=== PATIENT | female | born 1970 | race Hispanic/Latino ===

== ENCOUNTER 2020-09-04 18:22 | Inpatient (IN) | payer SELFPAY ==
[2020-09-04] MEDS ORDERED: METHYLPREDNISOLONE 40 MG INJ ONE (19:12)
[2020-09-04] MEDS ORDERED: ALBUTEROL INHALER 60 PUFF/8 GM IH ONE (19:12)
--- NOTE | 2020-09-04 19:38 | RAD REPORT ---
EXAM DESCRIPTION: RAD - Chest Single View - 09/04/2020 7:07 pm CLINICAL HISTORY: SOB Chest pain. COMPARISON: No comparisons FINDINGS: Portable technique limits examination quality. Moderate peripherally oriented airspace opacities are present, greater on the right, likely represent ing COVID pneumonia. The heart is mildly prominent size. No displaced fractures.
--- NOTE | 2020-09-04 20:55 | ER ---
Nurse's Notes [facility] Name: Thais Contreras Age: 49 yrs Sex: Female : 1970 Arrival Date: 09/04/2020 Time: 18:24 Bed 26 Private MD: Diagnosis: Pneumonia due to other specified infectious organisms;Coronavirus infection, unspecified;Hypoxemia Presentation: 09/04 18:37 Chief complaint: Patient states: SOB with exertion and difficulty breathing for a ll1 couple days. Bad cough since 08/13. Had positive covid test 08/18. Coronavirus screen: Client denies travel out of the [place] in the last 14 days. congestion, cough unrelated to allergies, difficulty breathing, fatigue, shortness of breath, Client presents with at least one sign or symptom that may indicate coronavirus-19. Standard/surgical mask placed on the client. Client reports previous positive COVID test result. Date of collection: August 15, 2020. Ebola Screen: Patient denies travel to an Ebola-affected area in the 21 days before illness onset. Initial Sepsis Screen: Does the patient meet any 2 criteria? RR > 20 per min. HR > 90 bpm. Yes Does the patient have a suspected source of infection? Yes: Productive cough/pneumonia. Risk Assessment: Do you want to hurt yourself or someone else? Patient reports no desire to harm self or others. Onset of symptoms was August 13, 2020. 18:37 Method Of Arrival: Wheelchair ll1 18:37 Acuity: MELIDA 2 ll1 Triage Assessment: 19:00 Respiratory: the patient has moderate shortness of breath. vg1 Historical: - Allergies: 18:44 Peanut; ll1 - PMHx: 18:44 None; ll1 - PSHx: 18:44 foot sx; ll1 - Immunization history:: Flu vaccine is not up to date. - Social history:: Smoking status: Patient denies any tobacco usage or history of. Screenin:00 Abuse screen: Denies threats or abuse. Nutritional screening: No deficits noted. vg1 Tuberculosis screening: No symptoms or risk factors identified. Fall Risk None identified. Assessment: 19:00 General: Appears in no apparent distress. comfortable, Behavior is calm, cooperative. vg1 19:00 Pain: Denies pain. Neuro: Level of Consciousness is awake, alert, obeys commands, vg1 Oriented to person, place, time, situation. Cardiovascular: Capillary refill < 3 seconds in bilateral fingers. Respiratory: Reports cough that is productive, Airway is patent Respiratory effort is even, labored, Respiratory pattern is regular, symmetrical, Breath sounds with crackles bilaterally. GI: No signs and/or symptoms were reported involving the gastrointestinal system. : No signs and/or symptoms were reported regarding the genitourinary system. EENT: No signs and/or symptoms were reported regarding the EENT system. Derm: Skin is intact, is healthy with good turgor. Musculoskeletal: Circulation, motion, and sensation intact. 19:00 Cardiovascular: Rhythm is sinus tachycardia. vg1 20:00 Reassessment: Patient appears in no apparent distress at this time. No changes from vg1 previously documented assessment. Patient is alert, oriented x 3, equal unlabored respirations, skin warm/dry/pink. 21:15 Reassessment: Patient appears in no apparent distress at this time. Patient is alert, vg1 oriented x 3, equal unlabored respirations, skin warm/dry/pink. Patient denies pain at this time. 22:00 Reassessment: Patient appears in no apparent distress at this time. Patient is alert, vg1 oriented x 3, equal unlabored respirations, skin warm/dry/pink. Patient denies pain at this time. 23:02 Reassessment: Patient appears in no apparent distress at this time. No changes from vg1 previously documented assessment. Patient is alert, oriented x 3, equal unlabored respirations, skin warm/dry/pink. 09/05 00:00 Reassessment: Patient appears in no apparent distress at this time. No changes from vg1 previously documented assessment. Patient denies pain at this time. 19:25 Reassessment: report given to Felisa RN, pt transferred to hold area bed 26. ll2 Vital Signs: 09/04 18:37 Pulse 130; Resp 30; Pulse Ox 86% on R/A; Weight 72.57 kg; Height 5 ft. 2 in. (157.48 ll1 cm); Pain 8/10; 18:40 Resp 26; Pulse Ox 93% on 3 lpm NC; ll1 18:44 BP 122 / 90; Pulse 117; Resp 22; Pulse Ox 95% on 3 lpm NC; ll1 18:45 BP 128 / 93; Pulse 111; Resp 22; Pulse Ox 98% on 4 lpm NC; vg1 20:15 BP 108 / 53; Pulse 101; Resp 24; Pulse Ox 96% on 3 lpm NC; vg1 18:37 Body Mass Index 29.26 (72.57 kg, 157.48 cm) ll1 ED Course: 18:24 Patient arrived in ED. rg4 18:34 Ruiz Sandoval PA is PHCP. cp 18:34 Ruiz Russell MD is Attending Physician. cp 18:37 Arm band placed on Patient placed in an exam room, on a stretcher. ll1 18:39 Triage completed. ll1 18:49 Izabella Sorenson RN is Primary Nurse. vg1 19:00 Patient has correct armband on for positive identification. Bed in low position. Call vg1 light in reach. Adult w/ patient. 19:01 Xray at bedside. vg1 19:07 XRAY Chest (1 view) In Process Unspecified. EDMS 19:15 Inserted saline lock: 20 gauge in right antecubital area, using aseptic technique. vg1 Blood collected. 19:15 Initial lab(s) drawn, by al, sent to lab. vg1 20:53 Liam Jo MD is Hospitalizing Provider. cp 09/05 01:17 No provider procedures requiring assistance completed. vg1 04:26 Primary Nurse role handed off by Izabella Sorenson RN mw2 13:54 Maeve Kirkpatrick, EVELINE is Primary Nurse. zb 19:55 Patient admitted, IV remains in place. ll2 20:06 PHCP role handed off by Ruiz Sandoval PA sg 20:06 Primary Nurse role handed off by Maeve Kirkpatrick, EVELINE sg Administered Medications: 09/04 19:27 Drug: SOLU-Medrol 80 mg Route: IVP; Site: right antecubital; vg1 21:11 Follow up: Response: No adverse reaction vg1 19:28 Drug: Albuterol HFA Inhaler 2 puffs Route: Inhalation; vg1 21:11 Follow up: Response: No adverse reaction vg1 21:35 Drug: Rocephin 1 grams Route: IV; Rate: calculated rate; Site: right antecubital; vg1 23:40 Follow up: IV Status: Completed infusion vg1 21:35 Drug: Zithromax 500 mg Route: PO; vg1 23:40 Follow up: Response: No adverse reaction vg1 Outcome: 20:54 Decision to Hospitalize by Provider. cp 09/05 19:54 Admitted to ER Hold. Please see [facility] for further documentation. ll2 Condition: stable Instructed on the need for admit. 19:55 Patient left the ED. ll2 22:10 Patient left the ED. sg Signatures: Dispatcher [employer] EDMS Alban Dorado RN RN sg Ruiz Sandoval PA PA cp Garcia, Rubi rg4 Irene Martin 2 Kiersten Barkley RN RN ll2 Izabella Sorenson RN RN vg1 Hiwot Pepe RN RN ll1 Maeve Kirkpatrick RN RN zb Corrections: (The following items were deleted from the chart) 09/04 18:44 18:37 Allergies: No Known Allergies; ll1 ll1 18:44 18:37 PSHx: None; ll1 ll1
--- NOTE | 2020-09-04 20:55 | EDPHYS ---
Physician Documentation [facility] Name: Thais Contreras Age: 49 yrs Sex: Female : 1970 Arrival Date: 09/04/2020 Time: 18:24 Bed 26 Private MD: ED Physician Ruiz Russell HPI: 09/04 18:50 This 49 yrs old Female presents to ER via Wheelchair with complaints of cp Shortness Of Breath, Breathing Difficulty, Covid+. 18:50 The patient has shortness of breath at rest. Onset: The symptoms/episode began/occurred cp gradually, and became worse 2 day(s) ago. Duration: The symptoms are continuous, and are steadily getting worse. Associated signs and symptoms: Pertinent negatives: chest pain, diaphoresis, fever. Severity of symptoms: in the emergency department the symptoms are unchanged despite home interventions. 18:50 Patient reports she has had cough since 08-13-2020 and tested positive for COVID-19 on cp 08-18-2020. Has not been treated illness. Historical: - Allergies: 18:44 Peanut; ll1 - PMHx: 18:44 None; ll1 - PSHx: 18:44 foot sx; ll1 - Immunization history:: Flu vaccine is not up to date. - Social history:: Smoking status: Patient denies any tobacco usage or history of. ROS: 19:00 Constitutional: Negative for body aches, chills, fever, poor PO intake. cp 19:00 Eyes: Negative for injury, pain, redness, and discharge. cp 19:00 ENT: Negative for ear pain, sore throat, difficulty swallowing, difficulty handling secretions. 19:00 Cardiovascular: Negative for chest pain, edema, palpitations. 19:00 Respiratory: Positive for cough, "sounds productive", shortness of breath. 19:00 Abdomen/GI: Negative for abdominal pain, nausea, vomiting, and diarrhea. 19:00 Neuro: Negative for altered mental status, headache, weakness. 19:00 All other systems are negative. Exam: 19:05 Constitutional: The patient appears in no acute distress, alert, awake, cp non-diaphoretic, non-toxic, well developed, well nourished. 19:05 Head/Face: Normocephalic, atraumatic. cp 19:05 Eyes: Periorbital structures: appear normal, Conjunctiva: normal, no exudate, no injection, Sclera: no appreciated abnormality, Lids and lashes: appear normal, bilaterally. 19:05 ENT: External ear(s): are unremarkable, Nose: is normal, Mouth: Lips: moist, Oral mucosa: moist, Posterior pharynx: Airway: no evidence of obstruction, patent. 19:05 Neck: ROM/movement: is normal, is supple, without pain, no range of motions limitations. 19:05 Chest/axilla: Inspection: normal, Palpation: is normal, no crepitus, no tenderness. 19:05 Cardiovascular: Rate: tachycardic, Rhythm: regular, Edema: is not appreciated, JVD: is not appreciated. 19:05 Respiratory: the patient does not display signs of respiratory distress, Respirations: labored breathing, that is mild, shallow respirations, that is mild, tachypnea, that is mild, Breath sounds: bronchial sounds, that are mild, are heard diffusely, decreased breath sounds, that are moderate, throughout, wheezing: is not appreciated. 19:05 Abdomen/GI: Exam negative for discomfort, distension, guarding, Inspection: abdomen appears normal. 19:05 Neuro: Orientation: to person, place \\T\\ time. Mentation: is normal. 19:49 ECG was reviewed by the Attending Physician. Vital Signs: 18:37 Pulse 130; Resp 30; Pulse Ox 86% on R/A; Weight 72.57 kg; Height 5 ft. 2 in. (157.48 ll1 cm); Pain 8/10; 18:40 Resp 26; Pulse Ox 93% on 3 lpm NC; ll1 18:44 BP 122 / 90; Pulse 117; Resp 22; Pulse Ox 95% on 3 lpm NC; ll1 18:45 BP 128 / 93; Pulse 111; Resp 22; Pulse Ox 98% on 4 lpm NC; vg1 20:15 BP 108 / 53; Pulse 101; Resp 24; Pulse Ox 96% on 3 lpm NC; vg1 18:37 Body Mass Index 29.26 (72.57 kg, 157.48 cm) ll1 MDM: 18:35 Patient medically screened. lili 20:55 Physician consultation: Liam Jo MD was called at 20:50, was contacted at 20:50, regarding admission, to the medical/surgical unit. patient's condition. 21:00 Data reviewed: vital signs, nurses notes, lab test result(s), EKG, radiologic studies, cp plain films. 21:00 Antibiotic administration: Rocephin and Zithromax given. Test interpretation: by ED cp physician or midlevel provider: ECG. 09/04 18:44 Order name: Basic Metabolic Panel; Complete Time: 21:58 cp 09/04 21:58 Interpretation: Normal except: CL 108; BUN 3. cp 09/04 18:44 Order name: CBC with Diff cp 09/04 21:43 Interpretation: Normal except: MCV 77.1; MCH 25.2; PLT 462; RDW 27.0; BASO% 1.4. cp 09/04 18:44 Order name: LFT's; Complete Time: 21:58 cp 09/04 21:59 Interpretation: Normal except: ALB 2.6; GLOB 5.2; A/G 0.5. cp 09/04 18:44 Order name: Magnesium; Complete Time: 21:58 cp 09/04 18:44 Order name: NT PRO-BNP; Complete Time: 21:58 cp 09/04 21:58 Interpretation: Abnormal: NT PRO-BNP 2596. cp 09/04 18:44 Order name: PT-INR; Complete Time: 21:43 cp 09/04 18:44 Order name: Troponin (emerg Dept Use Only); Complete Time: 21:58 cp 09/04 21:59 Interpretation: Within normal limits: TROPED < 0.02. cp 09/04 18:44 Order name: CRP; Complete Time: 21:58 cp 09/04 21:59 Interpretation: Abnormal: C-REACTIVE PROT 21.50. cp 09/04 18:44 Order name: Ferritin; Complete Time: 21:58 cp 09/04 19:42 Order name: Urine Dipstick--Ancillary (enter results); Complete Time: 21:13 ds4 09/04 20:55 Order name: COVID-19 cp 09/04 21:26 Order name: C-Reactive Protein EDMS 09/04 21:26 Order name: C-Reactive Protein EDMS 09/04 21:26 Order name: C-Reactive Protein EDMS 09/04 18:44 Order name: XRAY Chest (1 view); Complete Time: 19:48 cp 09/04 19:48 Interpretation: Report review. cp 09/04 21:26 Order name: C-Reactive Protein EDMS 09/04 21:26 Order name: CBC with Automated Diff EDMS 09/04 21:26 Order name: CBC with Automated Diff EDMS 09/04 21:26 Order name: Comprehensive Metabolic Panel EDMS 09/04 21:26 Order name: Comprehensive Metabolic Panel EDMS 09/04 21:26 Order name: Ferritin EDMS 09/04 21:26 Order name: Ferritin EDMS 09/04 21:26 Order name: Ferritin EDMS 09/04 21:26 Order name: Ferritin EDMS 09/04 23:43 Order name: CBC Smear Scan EDMS 09/05 02:19 Order name: SARS-COV-2 RT PCR EDMS 09/05 04:43 Order name: Manual Differential EDMS 09/05 08:32 Order name: Glucose, Ancillary Testing EDMS 09/05 13:24 Order name: Glucose, Ancillary Testing EDMS 09/05 21:20 Order name: Glucose, Ancillary Testing EDMS 09/04 18:44 Order name: EKG; Complete Time: 18:45 cp 09/04 18:44 Order name: Cardiac monitoring; Complete Time: 19:47 cp 09/04 18:44 Order name: EKG - Nurse/Tech; Complete Time: 19:47 cp 09/04 18:44 Order name: IV Saline Lock; Complete Time: 19:29 cp 09/04 18:44 Order name: Labs collected and sent; Complete Time: 19:29 cp 09/04 18:44 Order name: O2 Per Protocol; Complete Time: 19:28 cp 09/04 18:44 Order name: O2 Sat Monitoring; Complete Time: 19:28 cp 09/04 18:44 Order name: Urine Dipstick-Ancillary (obtain specimen); Complete Time: 19:40 cp 09/04 18:44 Order name: Urine Test (obtain specimen); Complete Time: 19:40 cp 09/04 21:26 Order name: CONS Pharmacy Consult EDMS 09/04 21:26 Order name: Regular EDMS 09/04 21:26 Order name: Chest Single View EDMS 09/04 21:26 Order name: Chest Single View EDMS 09/04 21:27 Order name: Social Service Consult EDMS EC:49 Rate is 109 beats/min. Rhythm is regular. MO interval is normal. QRS interval is cp normal. QT interval is normal. T waves are Inverted in leads III, aVF, aVR. Interpreted by me. Reviewed by me. Administered Medications: 19:27 Drug: SOLU-Medrol 80 mg Route: IVP; Site: right antecubital; vg1 21:11 Follow up: Response: No adverse reaction vg1 19:28 Drug: Albuterol HFA Inhaler 2 puffs Route: Inhalation; vg1 21:11 Follow up: Response: No adverse reaction vg1 21:35 Drug: Rocephin 1 grams Route: IV; Rate: calculated rate; Site: right antecubital; vg1 23:40 Follow up: IV Status: Completed infusion vg1 21:35 Drug: Zithromax 500 mg Route: PO; vg1 23:40 Follow up: Response: No adverse reaction vg1 Disposition: 09/04/20 20:54 Hospitalization ordered by Liam Jo for Inpatient Admission. Preliminary diagnosis are Pneumonia due to other specified infectious organisms, Coronavirus infection, unspecified, Hypoxemia. - Bed requested for Telemetry/MedSurg (Inpatient). - Status is Inpatient Admission. sg - Condition is Fair. - Problem is new. - Symptoms have improved. Addendum: 09/07/2020 06:50 Co-signature as Attending Physician, Ruiz Russell MD I agree with the assessment and c cox plan of care. Signatures: Dispatcher [employer] EDVA Fariba Reaves RN RN mw Gay, Steven RN Ruiz Farnsworth MD MD cha Pena, Laura, RN RN lp1 Ruiz Sandoval PA PA cp Kiersten Barkley, RN RN ll2 Izabella Sorenson, RN RN vg1 Hiwot Pepe, EVELINE RN ll1 Corrections: (The following items were deleted from the chart) 09/04 18:44 18:37 Allergies: No Known Allergies; ll1 ll1 18:44 18:37 PSHx: None; ll1 ll1 20:55 20:54 Hospitalization Ordered by Liam Jo MD for Inpatient Admission. lp1 Preliminary diagnosis is Pneumonia due to other specified infectious organisms; Coronavirus infection, unspecified; Hypoxemia. Bed requested for Telemetry/MedSurg (Inpatient). Status is Inpatient Admission. Condition is Fair. Problem is new. Symptoms have improved. cp 01/04 19:55 09/04 20:55 09/04/2020 20:54 Hospitalization Ordered by Liam Jo MD for ll2 Inpatient Admission. Preliminary diagnosis is Pneumonia due to other specified infectious organisms; Coronavirus infection, unspecified; Hypoxemia. Bed requested for [facility] ER HOLD. Status is Inpatient Admission. Condition is Fair. Problem is new. Symptoms have improved. lp1 09/05 21:39 19:55 09/04/2020 20:54 Hospitalization Ordered by Liam Jo MD for Inpatient mw Admission. Preliminary diagnosis is Pneumonia due to other specified infectious organisms; Coronavirus infection, unspecified; Hypoxemia. Bed requested for [facility] ER HOLD. Status is Inpatient Admission. Condition is Fair. Problem is new. Symptoms have improved. ll2 22:10 21:39 09/04/2020 20:54 Hospitalization Ordered by Liam Jo MD for Inpatient sg Admission. Preliminary diagnosis is Pneumonia due to other specified infectious organisms; Coronavirus infection, unspecified; Hypoxemia. Bed requested for Telemetry/MedSurg (Inpatient). Status is Inpatient Admission. Condition is Fair. Problem is new. Symptoms have improved. mw
[2020-09-04 20:58] LABS: Urine Blood NEGATIVE (NEG); Urine Glucose NEGATIVE (NEG); Urine Protein NEGATIVE (NEG); Urine pH 6.5 (5.0-7.0)
[2020-09-04] MEDS ORDERED: ACETAMINOPHEN 500 MG TAB PO PRN (21:21)
[2020-09-04 21:26] LABS: Absolute Lymphocytes (CBC) 1.4 K/uL (0.7-4.9); Basophils % 1.4 % (0-1.3); Hematocrit 36.8 % (36.0-45.0); Lymphocytes % 16.8 % (15.3-44.8); MPV 9.3 fL (7.6-11.3); RBC Red Blood Cell Count 4.77 M/uL (3.86-4.86)
[2020-09-04] MEDS ORDERED: APIXABAN 2.5 MG TABLET PO SCH (21:27)
[2020-09-04 21:28] LABS: Protime INR 1.14
[2020-09-04] MEDS ORDERED: AZITHROMYCIN 250 MG TAB ONE (21:30)
[2020-09-04] MEDS ORDERED: CEFTRIAXONE/SWI 1gm 1 GM/10 ML SYR ONE (21:30)
[2020-09-04 21:53] LABS: ALT/SGPT 18 U/L (12-78); AST/SGOT 30 U/L (15-37); Albumin 2.6 g/dL (3.4-5.0); Alkaline Phosphatase 82 U/L (45-117); BUN Blood Urea Nitrogen 3 mg/dL (7-18); Bicarbonate 26 mmol/L (21-32); Bilirubin Direct < 0.1 mg/dL (0-0.2); Bilirubin Total 0.3 mg/dL (0.2-1.0); Ferritin 32.3 ng/mL (8-388); Glucose Level 98 mg/dL (74-106); Magnesium 2.3 mg/dL (1.8-2.4); NT PRO-BNP 2596 pg/mL (<125); Potassium 3.7 mmol/L (3.5-5.1); Protein, Total 7.8 g/dL (6.4-8.2); Sodium Level 141 mmol/L (136-145); Troponin (Emerg Dept Use Only) < 0.02 ng/mL (0.0-0.045)
--- NOTE | 2020-09-04 22:10 | P.HP ---
Certification for Inpatient Patient admitted to: Inpatient With expected LOS: <2 Midnights Practitioner: I am a practitioner with admitting privileges, knowledge of patient current condition, hospital course, and medical plan of care. Services: Services provided to patient in accordance with Admission requirements found in Title 42 Section 412.3 of the Code of Federal Regulations Patient History Date of Service: 09/04/20 Reason for admission: Biggs virus pneumonia History of Present Illness: Patient is 49 years of age diagnosed with biggs virus on 08/18 started having more shortness of breath associated with cough and appeared in the emergency room she has been complaining of shortness of breath on mild x-ray no other medical history Review of Systems General: Weakness Respiratory: Cough, Shortness of Breath Physical Examination - Vital Signs Blood Pressure: 122/90 Pulse: 117 Respirations: 22 Pulse Ox (%): 95 - Physical Exam General: Alert, In no apparent distress, Oriented x3, Mild distress Respiratory: Clear to auscultation bilaterally, Diminished Cardiovascular: No edema, Normal S1 S2 Gastrointestinal: Normal bowel sounds, Soft and benign - Studies Laboratory Data (last 24 hrs) 09/04/20 19:15: PT 13.4 H, INR 1.14 09/04/20 19:15: WBC 8.5, Hgb 12.0, Hct 36.8, Plt Count 462 H 09/04/20 19:15: Sodium 141, Potassium 3.7, BUN 3 L, Creatinine 0.62, Glucose 98, Magnesium 2.3, Total Bilirubin 0.3, AST 30, ALT 18, Alkaline Phosphatase 82 Assessment and Plan - Problems (Diagnosis) (1) Pneumonia due to Coronavirus disease 2019 Current Visit: Yes Status: Acute Plan: Patient is 49 years of age admitted with biggs virus pneumonia she is doing better currently stable continue with steroids labs reviewed saturation satisfactory no prior medical history possible discharge tomorrow on steroid will check if she needs oxygen CRP is 21 ferritin level and CRP is order for tomorrow morning - Advance Directives Does patient have a Living Will: No Does patient have a Durable POA for Healthcare: No
[2020-09-04 23:42] LABS: Anisocytosis 2+; Blood Morphology Comment NOTED (NOT SEEN); Platelet Estimate ADEQ; White Blood Cell Scan OK (OK)
[2020-09-05] MEDS ORDERED: APIXABAN 5 MG TABLET ONE ×3 (00:54→21:06)
[2020-09-05] MEDS ORDERED: METHYLPREDNISOLONE 40 MG INJ ONE ×4 (03:39→21:30)
[2020-09-05 03:42] LABS: Basophils % 0.3 % (0-1.3); Hematocrit 33.7 % (36.0-45.0); Lymphocytes % 11.9 % (15.3-44.8)
[2020-09-05] MEDS: METHYLPREDNISOLONE 125 MG INJ IV SCH ×3 (03:45→17:00)
[2020-09-05 03:52] LABS: ALT/SGPT 19 U/L (12-78); AST/SGOT 24 U/L (15-37); Albumin 2.4 g/dL (3.4-5.0); Alkaline Phosphatase 74 U/L (45-117); BUN Blood Urea Nitrogen 5 mg/dL (7-18); Bicarbonate 26 mmol/L (21-32); Bilirubin Total 0.3 mg/dL (0.2-1.0); Ferritin 28.5 ng/mL (8-388); Glucose Level 141 mg/dL (74-106); Potassium 4.3 mmol/L (3.5-5.1); Protein, Total 7.2 g/dL (6.4-8.2); Sodium Level 141 mmol/L (136-145)
[2020-09-05 04:42] VITALS: BMI 30.2
[2020-09-05 04:43] LABS: Anisocytosis 2+; Blood Morphology Comment NOTED (NOT SEEN); Platelet Estimate INCR; Polychromasia 1+
[2020-09-05] MEDS: INSULIN -REGULAR HUMAN 50 UNIT/0.5 ML ML SQ SCH ×4 (08:30→21:00)
[2020-09-05] MEDS ORDERED: VITAMIN D 1000 UNIT TAB ONE ×2 (08:53→09:18)
[2020-09-05] MEDS ORDERED: ASCORBIC ACID 500 MG TABLET ONE ×3 (08:54→21:06)
[2020-09-05] MEDS ORDERED: ZINC SULFATE 220 MG CAP ONE (08:54)
--- NOTE | 2020-09-05 08:58 | RAD REPORT ---
EXAM DESCRIPTION: RAD - Chest Single View - 09/05/2020 7:11 am CLINICAL HISTORY: penumonia Chest pain. COMPARISON: Chest Single View dated 09/04/2020 FINDINGS: Portable technique limits examination quality. Airspace opacities along the periphery of both lungs is again seen with interstitial prominence. Over all, findings are stable since comparative study. The heart is upper limit of normal in size. No disp laced fractures. IMPRESSION: Stable chest since 09/04/2020.
[2020-09-05] MEDS: APIXABAN 5 MG TABLET PO SCH ×2 (09:00→21:00)
[2020-09-05] MEDS: ASCORBIC ACID 500 MG TABLET PO SCH ×3 (09:00→21:00)
[2020-09-05] MEDS: ZINC SULFATE 220 MG CAP PO SCH (09:00)
[2020-09-05] MEDS: VITAMIN D 1000 UNIT TAB PO SCH (09:00)
--- NOTE | 2020-09-05 09:11 | P.DS ---
Admission Date: 09/04/20 Discharge Date: 09/05/20 Primary Care Provider: none Disposition: ROUTINE DISCHARGE Discharge Condition: GOOD Reason for Admission: Biggs virus pneumonia Consultations: Pulmonary-Dr. Jo Procedures: CXR: FINDINGS: Portable technique limits examination quality. Moderate peripherally oriented airspace opacities are present, greater on the right, likely representing COVID pneumonia. The heart is mildly prominent size. No displaced fractures. Medical Problem List: Bilateral COVID 19 pneumonia with hypoxia Brief History of Present Illness: 49 year old female recently diagnosis with COVID 19 on 08/18. She came to the ER due to increasing shortness of breath, cough and fatigue. Patient admitted for treatment. Hospital Course: Patient recently diagnosis with COVID 19. Patient presented with shortness of breath. Patient found to have bilateral COVID 19 pneumonia with hypoxia. Inflammatory markers reviewed showed no significant elevation. Patient has done well Overnite. Patient without significant shortness of breath with oxygen. At discharge home oxygen will be arranged. Patient will continue with 3 L per nasal cannula. At discharge patient will continue with prednisone 20 mg 1 pill twice daily for 7 days then 1 pill once daily for 7 days. Patient will also continue with aspirin 81 mg daily, zinc 220 mg daily, vitamin-D 2000 units daily, and vitamin-C 500 mg 3 times a day. Education on isolation and COVID 19 will be provided. Recommend follow up with pulmonology in 1 week to follow up this hospitalization and continue her care. Patient will establish care locally with a PCP to further address her condition. Vital Signs/Physical Exam: Temp Pulse Resp BP Pulse Ox 96.9 F 95 H 17 108/80 97 09/05/20 04:00 09/05/20 04:00 09/05/20 04:00 09/05/20 04:00 09/05/20 04:00 General: Alert, In no apparent distress, Oriented x3, Cooperative HEENT: Atraumatic Neck: Supple Respiratory: Other (Patient on 3 L per nasal cannula. No acute distress noted.) Cardiovascular: Normal pulses, Regular rate/rhythm Gastrointestinal: Normal bowel sounds, No tenderness, No masses, No rebound, No guarding Neurological: Normal speech, Normal strength at 5/5 x4 extr, Normal tone, Normal affect Laboratory Data at Discharge: WBC 8.1 K/uL (4.3-10.9) 09/05/20 03:01 Hgb 11.3 g/dL (12.0-15.0) L 09/05/20 03:01 Hct 33.7 % (36.0-45.0) L 09/05/20 03:01 Plt Count 435 K/uL (152-406) H 09/05/20 03:01 PT 13.4 SECONDS (9.5-12.5) H 09/04/20 19:15 INR 1.14 09/04/20 19:15 Sodium 141 mmol/L (136-145) 09/05/20 03:01 Potassium 4.3 mmol/L (3.5-5.1) 09/05/20 03:01 BUN 5 mg/dL (7-18) L 09/05/20 03:01 Creatinine 0.56 mg/dL (0.55-1.3) 09/05/20 03:01 Glucose 141 mg/dL (74-106) H 09/05/20 03:01 Magnesium 2.3 mg/dL (1.8-2.4) 09/04/20 19:15 Total Bilirubin 0.3 mg/dL (0.2-1.0) 09/05/20 03:01 AST 24 U/L (15-37) 09/05/20 03:01 ALT 19 U/L (12-78) 09/05/20 03:01 Alkaline Phosphatase 74 U/L (45-117) 09/05/20 03:01 Home Medications: Ascorbic Acid [Vitamin C*] 500 mg PO TID #90 tablet 09/05/20 Aspirin [Aspirin EC 81 MG] 81 mg PO DAILY #90 tablet. 09/05/20 Cholecalciferol (Vitamin D3) [Vitamin D 1000 Iu Tab*] 2,000 unit PO DAILY #60 tab 09/05/20 Zinc Sulfate [Zinc Sulfate*] 220 mg PO DAILY #30 cap 09/05/20 predniSONE [Deltasone] 20 mg PO SEECOM #21 tab 09/05/20 New Medications: Aspirin [Aspirin EC 81 MG] 81 mg PO DAILY #90 tablet. predniSONE [Deltasone] 20 mg PO SEECOM #21 tab Ascorbic Acid [Vitamin C*] 500 mg PO TID #90 tablet Cholecalciferol (Vitamin D3) [Vitamin D 1000 Iu Tab*] 2,000 unit PO DAILY #60 tab Zinc Sulfate [Zinc Sulfate*] 220 mg PO DAILY #30 cap Patient Discharge Instructions: Patient recently diagnosis with COVID 19. Patient presented with shortness of breath. Patient found to have bilateral COVID 19 pneumonia with hypoxia. Inflammatory markers reviewed showed no significant elevation. Patient has done well Overnite. Patient without significant shortness of breath with oxygen. At discharge home oxygen will be arranged. Patient will continue with 3 L per nasal cannula. At discharge patient will continue with prednisone 20 mg 1 pill twice daily for 7 days then 1 pill once daily for 7 days. Patient will also continue with aspirin 81 mg daily, zinc 220 mg daily, vitamin-D 2000 units daily, and vitamin-C 500 mg 3 times a day. Education on isolation and COVID 19 will be provided. Recommend follow up with pulmonology in 1 week to follow up this hospitalization and continue her care. Patient will establish care locally with a PCP to further address her condition. Diet: AHA Activity: Ad luke Followup: NONE,NONE [Primary Care Provider] - Time spent managing pt's care (in minutes): 55
[2020-09-05] MEDS ORDERED: INFLUENZA VACCINE (for 3y+) 0.5 ML DOSE IMVAC ONE ×2 (10:00→15:17)
--- NOTE | 2020-09-05 10:29 | EKG ---
Test Date: 2020-09-04 Test Time: 19:41:18 Fence Erector: TADEO MEASUREMENT RESULTS: Intervals: Rate: 109 ID: [id number] QRSD: 70 QT: 342 QTc: 460 [place]: P: 30 ID: [id number] QRS: 59 T: -15 INTERPRETIVE STATEMENTS: Sinus tachycardia Anterior infarct, age undetermined Abnormal ECG No previous ECG available for comparison Electronically Signed On 09-05-20 10:27:50 HOISTER by Edison Pedraza
[2020-09-05 13:07] VITALS: O2SAT 94
[2020-09-05] MEDS ORDERED: NA CHLORIDE 0.9% 1,000 ML ONE (13:07)
[2020-09-05] MEDS ORDERED: NITROGLYCERIN 1 GM PKT TD ONE (13:08)
[2020-09-05] MEDS ORDERED: ASPIRIN 81 MG CHEWABLE TABLET ONE (13:08)
[2020-09-06] MEDS: METHYLPREDNISOLONE 125 MG INJ IV SCH ×2 (02:00→08:10)
[2020-09-06 04:03] LABS: C-Reactive Protein 9.14 mg/L (<3.00); Ferritin 27.3 ng/mL (8-388)
[2020-09-06 06:34] LABS: Urine Appearance CLEAR; Urine Bilirubin NEGATIVE (NEG); Urine Blood NEGATIVE (NEG); Urine Color YELLOW; Urine Glucose NEGATIVE (NEG); Urine Protein NEGATIVE (NEG); Urine Specific Gravity 1.025 (1.005-1.030); Urine Urobilinogen 0.2 mg/dL (0.2-1.0); Urine pH 6.5 (5.0-7.0)
[2020-09-06 06:44] LABS: Urine Microscopic Reflex NO UMIC
[2020-09-06] MEDS: INSULIN -REGULAR HUMAN 50 UNIT/0.5 ML ML SQ SCH ×2 (07:30→11:30)
[2020-09-06] MEDS: APIXABAN 5 MG TABLET PO SCH (08:10)
[2020-09-06] MEDS: ASCORBIC ACID 500 MG TABLET PO SCH ×2 (08:10→14:07)
[2020-09-06] MEDS: VITAMIN D 1000 UNIT TAB PO SCH (08:10)
[2020-09-06] MEDS: ZINC SULFATE 220 MG CAP PO SCH (08:10)
[2020-09-06 12:54] VITALS: BP 114/76; TEMP 96.9
== END 2020-09-06 17:31 | disposition home or self-care (01) | DRG 177 ==
LOC: ER 18:22 → ERHOLD 21:22 → 4TH 09-05 22:00
PROVIDERS: ADMIT Internal Medicine Sleep Medicine; ATTEND Family Medicine
DX: U07.1 COVID-19 (principal); J12.82 Pneumonia due to coronavirus disease 2019; Z91.010 Allergy to peanuts; Z79.52 Long term (current) use of systemic steroids; Z79.82 Long term (current) use of aspirin; Z79.899 Other long term (current) drug therapy; Z23 Encounter for immunization
CPT/HCPCS: 36415; 71045; 80048; 80053; 80076; 81003; 82728; 82947; 83735; 83880; 84484; 85025; 85610; 86140; 90471; 93005; 94760; 96365; 96366; 96375; 99285; J0696; J2920; J2930; J7030; Q2035; U0003